=== PATIENT | female | born 1970 | race Caucasian/White ===

== ENCOUNTER 2017-05-27 13:00 | Emergency (ER) | payer MEDICAID, OTHER ==
[~2017-05-27] VITALS: Ht 154.9 cm; Wt 64.5 kg
[~2017-05-27 13:00] MED LIST: ALBU8.5H8 IH; FOLI1TAB16 PO; METF500T PO; METO5TAB98 PO; NO HOME MEDS; THI100T PO
[2017-05-27] MEDS ORDERED: ondansetron/PF 4mg/2ml inj IV ONE (13:40)
[2017-05-27] MEDS ORDERED: normal saline 1000ML IV soln IVB ONE (13:40)
[2017-05-27] MEDS ORDERED: DOCU100C41 PO (14:04)
[2017-05-27 14:05] LABS: BASOPHILS # (AUTO) 0.1 X10'3 (0-0.2); BASOPHILS % (AUTO) 1.1 % (0-1); EOSINOPHILS # (AUTO) 0.2 X10'3 (0-0.9); EOSINOPHILS % (AUTO) 2.1 % (0-6); HEMATOCRIT 42.2 % (35.0-45.0); HEMOGLOBIN 14.6 g/dl (12.0-16.0); LYMPHOCYTES % (AUTO) 27.1 % (21-51); MEAN CORPUSCULAR HEMOGLOBIN 29.9 PG (27.0-31.0); MEAN CORPUSCULAR HGB CONC 34.7 % (33.0-36.5); MEAN CORPUSCULAR VOLUME 86.2 FL (78-98); MEAN PLATELET VOLUME 7.1 FL (7.4-10.4); MONOCYTES # (AUTO) 0.5 X10'3 (0-0.9); MONOCYTES % (AUTO) 7.2 % (2-12); NEUTROPHILS # (AUTO) 4.6 X10'3 (1.8-7.7); NEUTROPHILS % (AUTO) 62.5 % (42-75); PLATELET COUNT 293 X10'3 (140-440); RED BLOOD COUNT 4.89 X10'6 (4.20-5.60); RED CELL DISTRIBUTION WIDTH 12.4 % (11.5-14.5); WHITE BLOOD COUNT 7.3 X10'3 (4.5-11.0)
[2017-05-27 14:22] LABS: ALANINE AMINOTRANSFERASE 21 U/L (12-78); ALBUMIN 3.6 G/DL (3.4-5.0); ALBUMIN/GLOBULIN RATIO 0.9 (1.1-1.5); ALKALINE PHOSPHATASE 83 IU/L (46-116); ANION GAP 9 (8-16); ASPARTATE AMINO TRANSFERASE 15 U/L (10-37); BILIRUBIN,TOTAL 0.4 MG/DL (0.1-1.0); BLOOD UREA NITROGEN 16 MG/DL (7-18); BUN/CREATININE RATIO 16.2 (6.6-38.0); CALCIUM 9.4 MG/DL (8.5-10.1); CHLORIDE 103 MMOL/L (99-107); CREATININE 0.99 MG/DL (0.40-0.90); GLUCOSE 185 MG/DL (70-104); LIPASE 139 U/L (73-393); SODIUM 138 MMOL/L (135-145); TOTAL CARBON DIOXIDE 25.9 MMOL/L (24-32); TOTAL PROTEIN 7.5 G/DL (6.4-8.2); eGFR 60 ML/MIN
[2017-05-27] MEDS ORDERED: magnesium citrate 296ml oral solution PO ONE (14:30)
[2017-05-27 15:45] VITALS: BP 109/76
== END 2017-05-27 15:47 | disposition home or self-care (01) ==
LOC: EEVIPCON 13:01 → ER 13:01
DX: E86.0 Dehydration (principal); K59.00 Constipation, unspecified; R07.9 Chest pain, unspecified; R10.84 Generalized abdominal pain; E78.00 Pure hypercholesterolemia, unspecified; K21.9 Gastro-esophageal reflux disease without esophagitis; E11.9 Type 2 diabetes mellitus without complications; F15.10 Other stimulant abuse, uncomplicated; F17.200 Nicotine dependence, unspecified, uncomplicated; Z59.0 Homelessness; Z88.0 Allergy status to penicillin; Z88.2 Allergy status to sulfonamides; Z79.899 Other long term (current) drug therapy
CPT/HCPCS: 36415; 74018; 80053; 83690; 85025; 96361; 96374; 99285; J2405; J7030

== ENCOUNTER 2017-07-11 12:15 | Emergency (ER) | payer MEDICAID, OTHER ==
[~2017-07-11] VITALS: Ht 154.9 cm; Wt 64.5 kg
[~2017-07-11 12:15] MED LIST changes: +DOCU100C41 PO
[2017-07-11 12:33] VITALS: BP 149/87
[2017-07-11] MEDS ORDERED: IBUP-1984 PO (14:23)
== END 2017-07-11 14:44 | disposition home or self-care (01) ==
LOC: ER 12:15
DX: M79.605 Pain in left leg (principal); K21.9 Gastro-esophageal reflux disease without esophagitis; E78.00 Pure hypercholesterolemia, unspecified; E11.9 Type 2 diabetes mellitus without complications; F15.10 Other stimulant abuse, uncomplicated; Z86.14 Personal history of Methicillin resistant Staphylococcus aureus infection; Z59.0 Homelessness; Z88.0 Allergy status to penicillin; Z88.2 Allergy status to sulfonamides; Z88.8 Allergy status to other drugs, medicaments and biological substances; Z79.84 Long term (current) use of oral hypoglycemic drugs; Z79.899 Other long term (current) drug therapy
CPT/HCPCS: 73630; 93971; 99284

== ENCOUNTER 2020-11-08 10:20 | Emergency (ER) | payer MEDICAID ==
[~2020-11-08] VITALS: Ht 154.9 cm; Wt 64.5 kg
--- NOTE | 2020-11-08 11:12 | NUR ---
Patient up to bathroom at this time.
[2020-11-08] MEDS ORDERED: normal saline 1000ml 1,000 ML IV ONE ×2 (11:15→12:45)
[2020-11-08] MEDS ORDERED: ERYT-111 PO (11:45)
[2020-11-08] MEDS ORDERED: MUPI15CR12 TOP (11:45)
[2020-11-08] MEDS ORDERED: CLIN-97 PO (11:45)
[2020-11-08 12:02] LABS: COLOR,URINE YELLOW (Yellow); GLUCOSE, URINE >=1000 mg/dl (Neg); KETONES,URINE NEGATIVE (Neg); LEUKOCYTE ESTERASE ,URINE NEGATIVE (Neg); NITRITES, URINE NEGATIVE (Neg); OCCULT BLOOD,URINE TRACE-INTACT (Neg); PH,URINE 5.5 (4.8-8.0); PROTEIN,URINE NEGATIVE (Neg)
[2020-11-08 12:05] LABS: EOSINOPHILS # (AUTO) 0.1 X10'3 (0-0.9); LYMPHOCYTES # (AUTO) 2.1 X10'3 (1.1-4.8); MEAN CORPUSCULAR VOLUME 89.7 FL (78-98)
[2020-11-08 12:07] LABS: BASOPHILS # (AUTO) 0.1 X10'3 (0-0.2); EOSINOPHILS % (AUTO) 1.5 % (0-6); HEMATOCRIT 42.5 % (35.0-45.0); HEMOGLOBIN 15.1 g/dl (12.0-16.0); LYMPHOCYTES % (AUTO) 22.3 % (21-51); MEAN CORPUSCULAR HEMOGLOBIN 31.8 PG (27.0-31.0); MEAN CORPUSCULAR HGB CONC 35.5 g/dL (33.0-36.5); MEAN PLATELET VOLUME 7.6 FL (7.4-10.4); MONOCYTES # (AUTO) 1.1 X10'3 (0-0.9); MONOCYTES % (AUTO) 11.1 % (2-12); NEUTROPHILS # (AUTO) 6.1 X10'3 (1.8-7.7); NEUTROPHILS % (AUTO) 64.1 % (42-75); PLATELET COUNT 320 X10'3 (140-440); RED BLOOD COUNT 4.73 X10'6 (4.20-5.60); WHITE BLOOD COUNT 9.5 X10'3 (4.5-11.0)
[2020-11-08 12:12] LABS: UA COLLECTION TYPE CLN CATCH MIDSTREAM
[2020-11-08 12:13] LABS: BACTERIA,URINE 4+ /HPF (Neg); CLARITY,URINE CLOUDY (Clear); MUCUS STRANDS NONE SEEN /LPF (Neg); RBC,URINE 0-2 /HPF (0-2); SQUAMOUS EPITHELIAL CELL,UR NONE SEEN /LPF (FEW); WBC CLUMPS,URINE MANY /HPF (NEGATIVE); WBC,URINE TNTC /HPF (0-4)
[2020-11-08 12:15] LABS: ALANINE AMINOTRANSFERASE 39 U/L (12-78); ALBUMIN/GLOBULIN RATIO 0.6 (1.1-1.5); ALKALINE PHOSPHATASE 176 IU/L (46-116); ANION GAP 11 (8-16); ASPARTATE AMINO TRANSFERASE 43 U/L (10-37); BILIRUBIN,TOTAL 1.8 MG/DL (0.1-1.0); BLOOD UREA NITROGEN 4 MG/DL (7-18); BUN/CREATININE RATIO 5.1 (6.6-38.0); CHLORIDE 92 MMOL/L (99-107); CREATININE 0.78 MG/DL (0.40-0.90); SODIUM 130 MMOL/L (135-145); TOTAL CARBON DIOXIDE 27.1 MMOL/L (24-32); TOTAL PROTEIN 7.9 G/DL (6.4-8.2); eGFR 78 ML/MIN
[2020-11-08 12:20] LABS: GLUCOSE 459 MG/DL (70-104); POTASSIUM 2.7 MMOL/L (3.5-5.1)
[2020-11-08] MEDS ORDERED: normal saline 1000ML IV soln IVB ONE (12:40)
[2020-11-08] MEDS ORDERED: potassium Cl 20 mEq SR tablet PO ONE (12:40)
[2020-11-08] MEDS ORDERED: magnesium oxide 400mg tablet PO ONE (13:00)
[2020-11-08] MEDS ORDERED: potassium Cl 20 mEq SR tablet PO STA (13:02)
[2020-11-08] MEDS ORDERED: POTA20TA19 PO (13:03)
[2020-11-08] MEDS ORDERED: insulin regular, human 10 units/0.1 ml syringe IV ONE (13:05)
[2020-11-08 14:38] VITALS: BP 133/75
== END 2020-11-08 14:39 | disposition home or self-care (01) ==
LOC: ER 10:21
DX: E11.65 Type 2 diabetes mellitus with hyperglycemia (principal); L01.00 Impetigo, unspecified; E78.00 Pure hypercholesterolemia, unspecified; K21.9 Gastro-esophageal reflux disease without esophagitis; F32.9 Major depressive disorder, single episode, unspecified; F15.90 Other stimulant use, unspecified, uncomplicated; Z86.69 Personal history of other diseases of the nervous system and sense organs; Z72.89 Other problems related to lifestyle; Z59.0 Homelessness; Z88.0 Allergy status to penicillin; Z88.2 Allergy status to sulfonamides; Z88.1 Allergy status to other antibiotic agents; Z88.8 Allergy status to other drugs, medicaments and biological substances; Z79.2 Long term (current) use of antibiotics; Z79.899 Other long term (current) drug therapy
CPT/HCPCS: 36415; 80053; 81001; 82948; 85025; 87077; 87088; 87186; 96361; 96374; 99284; J1815; J7030

== ENCOUNTER 2023-05-15 23:03 | Emergency (ER) | payer MEDICAID ==
[~2023-05-15] VITALS: Ht 165.1 cm; Wt 70.0 kg
[~2023-05-15 23:03] MED LIST changes: -ALBU8.5H8 IH; +COR3.125T PO; -DOCU100C41 PO; -FOLI1TAB16 PO; +FOLI1TAB27 PO; -METF500T PO; -METO5TAB98 PO; -NO HOME MEDS; -THI100T PO; +THIA100T66 PO
== END 2023-05-16 03:29 ==
LOC: ER 23:03
DX: I46.9 Cardiac arrest, cause unspecified (principal); I11.0 Hypertensive heart disease with heart failure; J44.9 Chronic obstructive pulmonary disease, unspecified; K21.9 Gastro-esophageal reflux disease without esophagitis; F32.A Depression, unspecified; Z88.0 Allergy status to penicillin; Z88.2 Allergy status to sulfonamides; Z88.8 Allergy status to other drugs, medicaments and biological substances; Z79.899 Other long term (current) drug therapy
CPT/HCPCS: 31500; 92950; 99291; J7030